=== PATIENT | male | born 1965 | race Caucasian/White ===

== ENCOUNTER 2021-02-12 16:19 | Emergency (ER) | payer BC, OTHER ==
--- NOTE | 2021-02-12 16:26 | EDM.PDOC ---
ED HPI GENERAL MEDICAL PROBLEM - General Chief Complaint: General Stated Complaint: COUGH, NAUSEA AND DIARRHEA Time Seen by Provider: 02/12/21 16:21 Source of Information: Reports: Patient History Limitations: Reports: No Limitations - History of Present Illness INITIAL COMMENTS - FREE TEXT/NARRATIVE: 55 YO WM PRESENTS TO ER COMPLAINING OF FLU-LIKE SYMPTOMS X 5 DAYS. PT WITH CO UGH/CONGESTION, SUBJECTIVE FEVERS, LOSS OF TASTE/SMELL WITH MILD DIARRHEA AND NAUSEA. PT WITH POSITIVE COVID EXPOSURE FROM GRANDCHILDREN LAST WEEK. PT DENIES CHEST PAIN RO SHORTNESS OF BREATH. PT REPORTS FEELING GENERALIZED WEAKNESS AND FATIGUE. Duration: Day(s): (5) Location: Reports: Generalized Severity: Mild Improves with: Reports: Rest Worsens with: Reports: None Associated Symptoms: Reports: Cough, Fever/Chills, Malaise, Weakness. Denies: Chest Pain, Shortness of Breath - Related Data Allergies Allergy/AdvReac Type Severity Reaction Status Date / Time gluten Allergy Rash Verified 01/11/21 08:32 latex Allergy Rash Verified 01/11/21 08:32 sumatriptan [From Imitrex] Allergy Hypertensio Verified 01/11/21 08:32 n sumatriptan succinate Allergy Hypertensio Verified 01/11/21 08:32 [From Imitrex] n Home Meds: Home Meds lisinopriL [Prinivil] 20 mg PO DAILY 08/18/13 [History] PARoxetine HCl [Paxil] 40 mg PO DAILY 05/02/18 [History] Pramipexole Di-HCl [Pramipexole Dihydrochloride] 0.125 mg PO BEDTIME 05/02/18 [History] metFORMIN HCl [Glucophage] 1,000 mg PO DAILY 05/02/18 [History] Cholecalciferol (Vitamin D3) [Vitamin D] 25 mg PO DAILY 05/10/19 [History] Cyanocobalamin (Vitamin B12) [Vitamin B12] 1 tab PO DAILY 11/24/19 [History] Alogliptin Benzoate [Alogliptin] 25 mg PO DAILY 02/19/20 [History] Carbidopa/Levodopa [Carbidopa-Levo 25-100 MG ODT] 100 mg PO DAILY 02/19/20 [History] Magnesium Oxide [Magnesium] 500 mg PO DAILY 02/19/20 [History] Cyanocobalamin (Vitamin B12) [Vitamin B12] 1,000 mcg PO DAILY 01/11/21 [History] Metoprolol Succinate [Toprol XL] 25 mg PO DAILY 01/11/21 [History] Albuterol Sulfate [Albuterol Sulfate Hfa] 8.5 gm IH Q4HR #1 hfa.aer.ad 02/12/21 [Rx] predniSONE 20 mg PO DAILY #15 tab 02/12/21 [Rx] Past Medical History HEENT History: Reports: Allergic Rhinitis, Impaired Vision, Other (See Below) Other HEENT History: Diabetic retinopathy, OTC reading glasses. Cardiovascular History: Reports: High Cholesterol, Hypertension, Other (See Below) Other Cardiovascular History: History of hyperlipidemia with fatty liver by CT scan Respiratory History: Reports: Intubation, Previous, Sleep Apnea, Other (See Below) Other Respiratory History: Patient is currently compliant with CPAP with previous history of noncompliance. Gastrointestinal History: Reports: Cholelithiasis, Fatty Liver, GERD, Hiatal Hernia, PUD Other Gastrointestinal History: Note history of Ashlyn fundoplication and cholecystectomy as below Genitourinary History: Reports: BPH, Prostate Disorder, Renal Calculus, Other (See Below) Other Genitourinary History: Bilateral moderate nephrolithiasis by CT scan with left-sided urolithiasis in July 2019 with spontaneous passage. Musculoskeletal History: Reports: Arthritis, Back Pain, Chronic, Neck Pain, Chronic, Osteoarthritis, Other (See Below) Other Musculoskeletal History: Positive JACKELYN in November 2015 Neurological History: Reports: Headaches, Chronic, Head Trauma, Migraines, Other (See Below) Other Neuro History: Refractory recurrent migraine/tension headaches, head contusion without concussion on 08/04/15 Psychiatric History: Reports: Addiction, Anxiety, Depression, Other (See Below) Other Psychiatric History: History of previous chronic narcotic use. Endocrine/Metabolic History: Reports: Diabetes, Type II, Other (See Below) Other Endocrine/Metabolic History: Hypocalcemia. Hematologic History: Reports: Blood Transfusion(s), Other (See Below) Other Hematologic History: Blood transfusions at time of Ashlyn fundoplication Immunologic History: Reports: Other (See Below) Other Immunologic History: Note previous negative workup for positive JACKELYN Oncologic (Cancer) History: Reports: None Dermatologic History: Reports: Eczema, Venous Stasis Dermatitis Other Dermatologic History: Venous stasis dermatitis - Infectious Disease History Infectious Disease History: Reports: Chicken Pox - Past Surgical History Head Surgeries/Procedures: Reports: None HEENT Surgical History: Reports: None, Oral Surgery, Other (See Below) Other HEENT Surgeries/Procedures: Previous tooth extractions. Cardiovascular Surgical History: Reports: None Other Cardiovascular Surgeries/Procedures: Left leg injections/sclerotherapy for varicose veins in about 2010 Respiratory Surgical History: Reports: None GI Surgical History: Reports: Appendectomy, Cholecystectomy, Colonoscopy, EGD, Hernia, Inguinal, Ashlyn Fundoplication, Other (See Below) Other GI Surgeries/Procedures: Ashlyn fundoplication in December 2008. Appendectomy in 1990. Laparoscopic cholecystectomy with concomitant liver biopsy on 11/16/18. Last EGD on 11/04/2019 with negative work-up for foreign body with previous EGD and colonoscopy on 11/26/18 and additional previous EGD on 07/01/16, 2009 and in 2007. Previous colonoscopy in about 2012. Right inguinal hernia repair in 1988. Male Surgical History: Reports: Circumcision, Vasectomy, Other (See Below) Other Male Surgeries/Procedures: Circumcision as an infant. Vasectomy in about 1995. Endocrine Surgical History: Reports: None Neurological Surgical History: Reports: None Musculoskeletal Surgical History: Reports: Arthroscopic Knee, Arthroscopic Procedure, Shoulder Surgery, Other (See Below) Other Musculoskeletal Surgeries/Procedures:: Right-sided arthroscopic meniscal repair in 1986. Right laparoscopic shoulder surgery in January 2016. Oncologic Surgical History: Reports: None Dermatological Surgical History: Reports: None - Past Imaging History Past Imaging History: Reports: Angiography ([facility] in May 2014.), CAT Scan (CT of the chest on 11/24/2019 with CTA of the chest on 06/29/16. [address] of the brain on 08/04/15 with multiple previous evaluations by history. CT of the abdomen and pelvis in July 2019 and on 07/30/10 and 11/07/06.), HIDA Scan (11/06/06), MRI (Negative MRI of the brain on 07/04/2019 with previous evaluations on 07/04/2019 and 01/05/2007.), Stress Testing (Cardiac stress test of unknown type at [facility] in May 2014.), Ultrasound (Gallbladder ultrasound on 11/03/16.), Upper GI X-Ray/Series (Upper GI with swallowing study on 06/05/11.), Venous Doppler (Left leg on 07/14/05.), Other (See Below) (EMG and nerve conduction studies in November 2015. Esophageal motility evaluation on 08/28/11.) Social & Family History - Family History HEENT: Reports: Impaired Vision, Other (See Below) Other HEENT Family History: Brother with IDDM and secondary diabetic retinopathy. Cardiac: Reports: CAD, Heart Murmur, MT, Stent, Syncope, Other (See Below) Other Cardiac Family History: History of early heart attacks in family, including brother in his 50s another brother in his 60s with brother also having a valve disorder with secondary syncopal episodes, which did require valve replacement at age 62. Both brothers did have PTCA/stents. Father with initial MT at age 50 with subsequent multiple MIs with no further procedures done however fatal MT at age 60. Respiratory: Reports: None GI: Reports: None : Reports: Dialysis, Renal Disease/Insufficiency Other Family History: Brother with IDDM and secondary diabetic nephropathy and current dialysis. OBGYN: Reports: None Musculoskeletal: Reports: None Neurological: Reports: Neuropathy, Diabetic, Neuropathy, Peripheral, Parkinson's, Other (See Below) Other Neurological Family History: Brother with diabetic neuropathy. Maternal aunt with Parkinson's disease Psychiatric: Reports: None Endocrine/Metabolic: Reports: Diabetes, type II, IDDM, Other (See Below) Other Endocrine/Metabolic Family History: Brother with IDDM and secondary complications as above. Hematologic: Reports: None Immunologic: Reports: None Dermatologic: Reports: None Oncologic: Reports: None - Caffeine Use Caffeine Use: Reports: Coffee Caffeine Use Comment: One cup of coffee per day, 2 sodas per day - Living Situation & Occupation Living situation: Reports: (1989, 3 children), with Family () Occupation: Employed (Currently works in [employer] at [employer]. 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 Denies: Black Stool, Bloody Stool, Vomiting : Reports: No Symptoms Musculoskeletal: Reports: No Symptoms Skin: Reports: No Symptoms Neurological: Reports: No Symptoms Psychiatric: Reports: No Symptoms Hematologic/Lymphatic: Reports: No Symptoms Immunologic: Reports: No Symptoms ED EXAM, GENERAL - Physical Exam Exam: See Below Exam Limited By: No Limitations General Appearance: Alert, WD/WN, No Apparent Distress Nose: Normal Inspection, Normal Mucosa, No Blood Throat/Mouth: Normal Inspection, Normal Lips, Normal Teeth, Normal Gums, Normal Oropharynx, Normal Voice, No Airway Compromise Head: Atraumatic, Normocephalic Neck: Normal Inspection, Supple, Non-Tender, Full Range of Motion Respiratory/Chest: No Respiratory Distress, Lungs Clear, Normal Breath Sounds, No Accessory Muscle Use, Chest Non-Tender Cardiovascular: Normal Peripheral Pulses, Regular Rate, Rhythm, No Edema, No Gallop, No JVD, No Murmur, No Rub GI/Abdominal: Normal Bowel Sounds, Soft, Non-Tender, No Organomegaly, No Distention, No Abnormal Bruit, No Mass Back Exam: Normal Inspection, Full Range of Motion, NT Extremities: Normal Inspection, Normal Range of Motion, Non-Tender, Normal Capillary Refill, No Pedal Edema Neurological: Alert, Oriented, CN II-XII Intact, Normal Cognition, Normal Gait, No Motor/Sensory Deficits Psychiatric: Normal Affect, Normal Mood Skin Exam: Warm, Dry, Intact, Normal Color, No Rash Lymphatic: No Adenopathy Course - Orders/Labs/Meds Labs: Laboratory Tests 02/12/21 Range/Units 16:28 SARS CoV-2 RNA Rapid RHEA Negative (NEGATIVE) - Radiology Interpretation Free Text/Narrative:: CXR- NAD Departure - Departure Time of Disposition: 16:58 Disposition: Home, Self-Care 01 Condition: Fair Clinical Impression: Viral syndrome URI (upper respiratory infection) Qualifiers: URI type: unspecified viral URI Qualified Code(s): J06.9 - Acute upper respiratory infection, unspecified - Discharge Information Prescriptions: Albuterol Sulfate [Albuterol Sulfate Hfa] 8.5 gm IH Q4HR #1 hfa.aer.ad predniSONE 20 mg PO DAILY #15 tab Instructions: Viral Respiratory Infection Forms: ED Department Discharge Additional Instructions: 1. DISCHARGE HOME 2. TYLENOL 1000MG EVERY 6 HOURS AND MOTRIN 600MG EVERY 6 HOURS NEEDED FOR FEVER/BODY ACHES- ALTERNATE MEDICATIONS 3. ZINC 50MG DAILY 4. VIT C 1000MG TWICE/DAY 5. VIT D 5000IU DAILY 6. ZYRTEC 10MG DAILY FOR COUGH/CONGESTION 7. ALBUTEROL HFA 2 PUFFS EVERY 4 HOURS AND NEEDED 8. PREDNISONE 60MG DAILY X 5 DAYS 9. FOLLOW UP IN CLINIC NEEDED 10. RETURN TO ER FOR WORSENING SYMPTOMS - Assessment/Plan Assessment:: 1. SUSPECT COVID-19 2. VIRAL SYNDROME Plan: 1. DISCHARGE HOME 2. TYLENOL 1000MG EVERY 6 HOURS AND MOTRIN 600MG EVERY 6 HOURS NEEDED FOR FEVER/BODY ACHES- ALTERNATE MEDICATIONS 3. ZINC 50MG DAILY 4. VIT C 1000MG TWICE/DAY 5. VIT D 5000IU DAILY 6. ZYRTEC 10MG DAILY FOR COUGH/CONGESTION 7. ALBUTEROL HFA 2 PUFFS EVERY 4 HOURS AND NEEDED 8. PREDNISONE 60MG DAILY X 5 DAYS 9. FOLLOW UP IN CLINIC NEEDED 10. RETURN TO ER FOR WORSENING SYMPTOMS
--- NOTE | 2021-02-12 16:49 | CR ---
[id number] RAD/RAD Chest PA And Lateral EXAM: RAD Chest PA And Lateral INDICATION: COUGH. COMPARISON: June 05, 2014 radiograph is currently not available for review. DISCUSSION: Mild linear scarring or atelectasis in lung bases. Borderline hyperinflation. Normal heart size. No effusions. Multiple surgical clips left upper quadrant. IMPRESSION: 1. No acute findings. Hong Davidson MD 02/12/21 0827 Thank you for allowing us to participate in the care of your patient.
[2021-02-12] MEDS ORDERED: methylPREDNISolone Sodium Succinate 125 MG/2 ML SDV IM ONE (17:14)
[2021-02-12] MEDS ORDERED: Albuterol 8 GM Inhaler INH SCH (17:15)
[2021-02-12 18:15] VITALS: BP 136/84; PULSE 80
== END 2021-02-12 17:45 | disposition home or self-care (01) ==
LOC: KA.ED 16:19
DX: B34.9 Viral infection, unspecified (principal); J06.9 Acute upper respiratory infection, unspecified; I10 Essential (primary) hypertension; E11.9 Type 2 diabetes mellitus without complications; Z91.018 Allergy to other foods; Z91.040 Latex allergy status; Z88.8 Allergy status to other drugs, medicaments and biological substances; Z79.84 Long term (current) use of oral hypoglycemic drugs; Z79.899 Other long term (current) drug therapy; Z20.822 Contact with and (suspected) exposure to COVID-19
CPT/HCPCS: 71046; 96372; 99283; 99283-25; A9270-GY; J2930; U0002